=== PATIENT | female | born 1995 | race Caucasian/White ===

== ENCOUNTER 2016-11-22 01:59 | Emergency (ER) | payer OTHER ==
[~2016-11-22] VITALS: Ht 154.9 cm; Wt 56.7 kg
--- NOTE | 2016-11-22 02:06 | ED GENERAL ADULT ---
See Addendum History of Present Illness General Chief Complaint: General Adult Stated Complaint: BIBA ANXIETY,FEVER Source: patient, family, EMS Exam Limitations: no limitations Vital Signs & Intake/Output Vital Signs & Intake/Output Vital Signs Date Time Temp Pulse Resp B/P Pulse O2 O2 Flow FiO2 Ox Delivery Rate 11/22 0234 100 Room Air 11/22 0231 92 11/22 0203 100.0 128 28 140/81 100 Room Air Allergies Coded Allergies: NO KNOWN ALLERGIES (11/22/16) Triage Nurses Notes Reviewed? yes HPI: Patient began running a fever earlier today. Positive nasal congestion and myalgias. She took Excedrin at 6 PM and then she took NyQuil at 11 PM. Mom checked on her tonight to check her temperature and it was still elevated and the patient became very anxious and began to have difficulty breathing. Patient very tachypneic on presentation. Patient states that her throat ortiz when she breathes. Patient denies any chest pain or chest tightness. Patient denies any headaches. The patient states that her fingers feel tingly. Patient denies any coughing. There is no nausea or vomiting. There is no constipation or diarrhea. Past History Travel History Traveled to [place] past 21 day No Medical History Any Pertinent Medical History? none Surgical History Surgical History: non-contributory Psychosocial History What is your primary language Thai Family History Hx Contributory? No Review of Systems Review of Systems Constitutional: Reports: see HPI, chills, fever. EENTM: Reports: see HPI, nasal congestion, throat pain. Respiratory: Reports: no symptoms. Cardiovascular: Reports: no symptoms. GI: Reports: no symptoms. Genitourinary: Reports: no symptoms. Musculoskeletal: Reports: no symptoms. Skin: Reports: no symptoms. Neurological/Psychological: Reports: no symptoms. Hematologic/Endocrine: Reports: no symptoms. Immunologic/Allergic: Reports: no symptoms. All Other Systems: Reviewed and Negative Physical Exam Physical Exam General Appearance: well developed/nourished, alert, awake Head: atraumatic, normal appearance Eyes: Bilateral: PERRL, EOMI. Ears, Nose, Throat: normal pharynx, normal ENT inspection, hearing grossly normal, PHARYNGEAL ERYTHEMA BUT NO TONSILLAR EXUDATES OR SWELLING. Neck: normal inspection, supple, full range of motion, NO STRIDOR Respiratory: normal breath sounds, chest non-tender, no respiratory distress, lungs clear Cardiovascular: regular rate/rhythm, normal peripheral pulses Gastrointestinal: normal bowel sounds, soft, non-tender, no organomegaly Back: normal inspection, normal range of motion Extremities: normal inspection, normal capillary refill, normal range of motion, no edema Neurologic/Psych: no motor/sensory deficits, awake, alert, oriented x 3, normal mood/affect Skin: intact, normal color, warm/dry Core Measures ACS in differential dx? No CVA/TIA Diagnosis: No Severe Sepsis Present: No Septic Shock Present: No Progress Differential Diagnoses I considered the following diagnoses in my evaluation of the patient: [Influenza , strep throat, anxiety attack] Plan of Care: Orders Procedure Date/time Status RAPID VIRAL INFLUENZA A 11/22 204 Complete THROAT CULTURE W/QUICK STREP 11/22 204 Active Initial ED EKG: none Comments: Patient's breathing has normalized and the tingling resolved her fingers. Departure Departure Disposition: HOME OR SELF CARE Condition: Stable Clinical Impression Primary Impression: Influenza A Referrals: KENJI PLASENCIA,[place] (PCP/Family) Additional Instructions: STAY OUT OF SCHOOL UNTIL YOU ARE FEVER FREE TAKE TAMIFLU DIRECTED RETURN NEEDED Departure Forms: Customer Survey General Discharge Information Prescriptions: Current Visit Scripts Oseltamivir Phosphate (Tamiflu) 1 CAP PO BID #10 CAP Critical Care Note Critical Care Note Critical Care Time: non-applicable
[2016-11-22] MEDS ORDERED: TAMIFLU75 M1 PO (03:02)
[2016-11-22 03:22] VITALS: BP 132/80
== END 2016-11-22 03:27 ==
LOC: ERH 01:59
DX: J09.X2 Influenza due to identified novel influenza A virus with other respiratory manifestations (principal)
CPT/HCPCS: 87804; 87804-59